=== PATIENT | female | born 1995 | race Caucasian/White ===

== ENCOUNTER 2017-05-02 18:06 | Observation (INO) ==
[2017-05-02 18:54] LABS: Amphetamine Screen,Urine Negative ng/mL (Cutoff=1000); Barbiturate Screen,Urine Negative ng/mL (Cutoff=200); Benzodiazepines Screen,Urine Negative ng/mL (Cutoff=200); Cannabinoid Screen,Urine Negative ng/mL (Cutoff = 50); Cocaine Screen,Urine Negative ng/mL (Cutoff= 300); Opiate Screen,Urine Negative ng/mL (Cutoff=300); Phencyclidine Screen,Urine Negative ng/mL (Cutoff=25)
--- NOTE | 2017-05-02 19:27 | Discharge Summary ---
Date of Encounter: 05/02/17 Time of Encounter: 19:27 - Discharge Diagnosis (1) 29 weeks gestation of Priority: Primary Status: Acute Comments: admitted for observation (2) Decreased movement Priority: Secondary Status: Acute Comments: anterior placenta patient reports feeling movement since arriving to L&D Qualifiers: Fetus number: single or unspecified fetus Trimester: third trimester Qualified Code(s): O36.8130 - Decreased movements, third trimester, not applicable or unspecified (3) NST (non-stress test) reactive on surveillance Priority: Secondary Status: Acute Comments: baseline 130 bpm with moderate variability +15x15 accels no decels noted. - Discharge Medications Home Medications: Lanolin [Lansinoh] 1 appl TP TID PRN #0 oint...g. 10/08/15 [Rx] Vit/FA 1 each PO DAILY tablet 10/08/15 [Rx] Allergies/Adverse Reactions: 3 Allergy/AdvReac Type Severity Reaction Status Date / Time No Known Allergies Allergy Verified 10/06/15 06:38 Data Procedures and tests throughout hospitalization: Laboratory Tests 05/02/17 18:40 Urine Opiates Screen Negative Ur Barbiturates Screen Negative Ur Phencyclidine Scrn Negative Ur Amphetamines Screen Negative U Benzodiazepines Scrn Negative Urine Cocaine Screen Negative U Marijuana (THC) Screen Negative Labs on day of discharge: Labs from last 24 hours 05/02/17 18:40 Urine Opiates Screen Negative Ur Barbiturates Screen Negative Ur Phencyclidine Scrn Negative Ur Amphetamines Screen Negative U Benzodiazepines Scrn Negative Urine Cocaine Screen Negative U Marijuana (THC) Screen Negative Date of admission: 05/02/17 18:06 Discharging clinician: Yocasta Wynn Anticipated date of discharge: 05/02/17 - Patient Status Disposition: Home, Self-Care Condition: Good Functional capacity at discharge: independent ambulation - Discharge Instructions Follow Up With: Cari Adair, [Partnered Physician] - - Diet and Activity Activity: increase activity as tolerated Diet: regular diet 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 Patient denies LOF, VB or contractions. Time Attestation: Total time spent providing and/or coordinating discharge services: Time Spent: Less than 30 minutes Exam - Constitutional General appearance IM: A&O X 3, pleasant, answers questions appropriately - Extremities Exam Extremities exam IM: Present: full ROM, normal capillary refill, normal inspection - Neurological Exam Neurological exam: alert, oriented X3, reflexes normal - Other Additional findings: FHR 130 bpm moderate variability +15x15 accels no decels noted. CAt. 1 tracing no contractions - VTE Reasons for not Prescribing Prophylaxis: Treatment not Indicated - Low risk for VTE
== END 2017-05-02 19:33 | disposition home or self-care (01) ==
LOC: 1NENULAB
PROVIDERS: ADMIT Obstetrics & Gynecology; ATTEND Obstetrics & Gynecology

== ENCOUNTER 2017-07-05 08:00 | Inpatient (IN) ==
[2017-07-05] MEDS ORDERED: Ondansetron 4 MG/2 ML VIAL IVP PRN (08:18)
[2017-07-05] MEDS ORDERED: Naloxone 0.4 MG/ML INJ IVP PRN (08:18)
[2017-07-05] MEDS ORDERED: Metoclopramide 10 MG/2 ML VIAL IVP PRN (08:18)
[2017-07-05] MEDS ORDERED: miSOPROStol 25 MCG TABLET PO PRN (08:18)
[2017-07-05] MEDS ORDERED: *HR* Nalbuphine 10 MG/ML AMPUL IVP PRN (08:18)
[2017-07-05] MEDS ORDERED: Famotidine 20 MG/2 ML VIAL IVP PRN (08:18)
[2017-07-05] MEDS ORDERED: Lidocaine 1% 20 ML MDV INFILT PRN (08:18)
[2017-07-05] MEDS ORDERED: Oxytocin 20 units/ LR 1000 mL 20 UNIT/1,000 ML BAG IVC SCH ×2 (08:30→22:52)
--- NOTE | 2017-07-05 09:26 | OB/GYN History & Physical ---
Date of Encounter: 07/05/17 Time of Encounter: 10:00 Assessment and Plan (1) 39 weeks gestation of Current visit: No Status: Acute Admit for IOL. Hodges and cytotec for induction. Epidural when requested. GBS negative. Anticipate . History of Present Illness Chief complaint: IOL HPI: Ms. Cast is a 22 year old female presenting for IOL at 39weeks. This has been uncomplicated. Blood type A positive Rubella immune Serologies negative GBS negative Past Med Surg Social Fam HX - Past Medical History Medical history: no medical history Psychiatric history: anxiety - Past Surgical History Surgical History: no surgical history - Social History Smoking Status: Former smoker Smokeless Tobacco Status: No Alcohol use: none Drug use: none - Family History Father Adopted: No Living Status: Still Living Hx Family Cardiac Disorders: No Hx Family Respiratory Disorders: No Hx Family Cancer: No Hx Family GI Disorders: No Hx Family Genitourinary Disorders: No Hx Family Endocrine Disorder: No Hx Family Musculoskeletal Disorders: No Hx Family Neuromuscular Disorders: No Hx Family Neurologic Disorders: No Hx Family HEENT Disorders: No Hx Family Autoimmune Disorders: No Hx Family Reproductive Disorders: No Hx Family Psychosocial Disorders: No Hx Family Medical Disorders: No Obstetrical History - Pregnancies : 2 Para: 1 Term: 1 Livin Medications and Allergies Lanolin [Lansinoh] 1 appl TP TID PRN #0 oint...g. 10/08/15 [Rx] Vit/FA 1 each PO DAILY tablet 10/08/15 [Rx] 3 Allergy/AdvReac Type Severity Reaction Status Date / Time No Known Allergies Allergy Verified 10/06/15 06:38 Review of System OB All systems PM: reviewed and no additional remarkable complaints except as stated Exam - Constitutional Constitutional: well developed, well nourished, no acute distress - Lungs Respiratory exam: CTAB - Cardiovascular Cardiovascular exam: RRR, +S1, +S2 - Abdomen Abdomen: Present: gravid, non tender - Extremities Extremities exam: normal inspection - Vulva Vulva: bilateral: normal - Vagina Vagina: Present: normal moisture - Cervix Dilation: 1 Effacement: 80 - Anus/Rectum Anus/Rectum: Present: normal perianal skin Results Result Diagrams: 07/05/17 09:10 All other labs normal. - VTE Reasons for not Prescribing Prophylaxis: Treatment not Indicated - Low risk for VTE
--- NOTE | 2017-07-05 09:28 | OB Labor Progress Note ---
Date of Encounter: 07/05/17 Time of Encounter: 09:26 Labor Progress Note - Subjective Subjective: Pt reports being hungry but no other complaints at this time. - Cervix Cervix: 80/-2 - Heart Tones Heart Tones: Category I - [place] Thom[place]: irregular UC - Interventions Interventions: Hodges balloon placed in cervix using sterile technique. Balloon inflated with 30ml sterile water. Pt tolerated well. - Plan Plan: Pt to ambulate for an hour and then will give cytotec.
[2017-07-05 09:43] LABS: Basophils % 0.4 %; Eosinophils % 0.5 %; Hemoglobin 13.8 g/dL (11.5-15.4); Immature Granulocytes % 0.6 % (0-4); Lymphocytes # 1.9 K/mcL (0.6-4.6); Lymphocytes % 23.8 %; Mean Corpuscular HGB Conc 35.4 g/dL (31.6-35.5); Mean Corpuscular Hemoglobin 31.1 pg (28.0-33.3); Mean Corpuscular Volume 87.8 fL (83.0-100.0); Mean Platelet Volume 12.9 fL (9.4-12.4); Monocytes # 0.7 K/mcL (0.0-1.3); Monocytes % 8.6 %; Neutrophils # 5.3 K/mcL (1.6-8.9); Platelet Count 131 K/mcL (140-400); Red Blood Count 4.44 M/mcL (3.82-4.97); Segmented Neutrophils % 66.1 %
[2017-07-05 10:39] LABS: Amphetamine Screen,Urine Negative ng/mL (Cutoff=1000); Barbiturate Screen,Urine Negative ng/mL (Cutoff=200); Benzodiazepines Screen,Urine Negative ng/mL (Cutoff=200); Cannabinoid Screen,Urine Negative ng/mL (Cutoff = 50); Cocaine Screen,Urine Negative ng/mL (Cutoff= 300); Opiate Screen,Urine Negative ng/mL (Cutoff=300); Phencyclidine Screen,Urine Negative ng/mL (Cutoff=25)
[2017-07-05] MEDS: Ringers Solution, Lactated 1,000 ML IVC SCH ×2 (14:31→15:38)
[2017-07-05] MEDS ORDERED: *HR* FentaNYL (PF) 100 MCG/2 ML VIAL EP ONE (15:18)
[2017-07-05] MEDS ORDERED: Bupivacaine-MPF 0.25% 10 ML VIAL EP ONE (15:18)
[2017-07-05] MEDS ORDERED: Epidural Premix (fent/bupiv) 110 ML EP ONE (15:26)
[2017-07-05] MEDS ORDERED: Epidural Premix (fent/bupiv) 110 ML EP SCH (15:30)
--- NOTE | 2017-07-05 15:57 | Anesthesia Evaluation PreOp ---
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 Had epidural with previous , no complications.Denies FHAP.) : Yes Alcohol Use: none Drug use: none Medications and Allergies Lanolin [Lansinoh] 1 appl TP TID PRN #0 oint...g. 10/08/15 [Rx] Vit/FA 1 each PO DAILY tablet 10/08/15 [Rx] 3 Allergy/AdvReac Type Severity Reaction Status Date / Time No Known Allergies Allergy Verified 10/06/15 06:38 - Meds/Allergy Pre-op Review Medications Reviewed: Yes Allergies Reviewed: Yes Beta Blockers on Current Med List: No Anesthesia Results - Labs 07/05/17 09:10 Anesthesia Exam 116/74,86, 16, 98%. Height: 5'10" Weight: 84kg NPO (# of Hours): >8 Pain Scale: 8 Pain Scale Used: Numeric (1 - 10) - HEENT Pupil (Motor): Pupils equal, EOMI Mallampati: II Teeth: Normal Oral Opening: Greater than 3 - HEATING AND COOLING SYSTEMS ENGINEER LOC: Oriented HEATING AND COOLING SYSTEMS ENGINEER Motor: Normal RUE, Normal LUE, Normal RLE, Normal LLE, Normal Face HEATING AND COOLING SYSTEMS ENGINEER Sensory: Normal: RUE, LUE, RLE, LLE, Face - Cardiac Rhythm: Regular - Pulmonary Breath Sounds: bilateral Clear Respiratory Effort: Symmetrical Anesthesia Assess/Plan ASA Score: 2 Modified Jackson Scale for Level of Consciousness: Cooperative, oriented, and tranquil Anesthetic Plan: Regional Monitoring Plan: Standard Monitors
--- NOTE | 2017-07-05 16:01 | Anesthesia Procedures ---
Date of Encounter: 07/05/17 Time of Encounter: 15:27 Procedures: Anesthesia - Epidural/Spinal Patient ID/Chart reviewed: Yes Patient examined: Yes OB Eval: Gestational age: 39 OB Eval: : 2 OB Eval: Hx Para: 1 OB Eval: Dilated at (cm): 4 OB Eval: Contractions: Non-stressed pattern Consent Obtained: Yes Supplemental Oxygen: None/Room Air Site Prep: Aseptic Technique, Sterile prep and drape, Povidone-Iodine 1% Patient position: upright Local Anesthetic: Lidocaine 1% Amount of Local Anesthetic used: 3 Touhy Needle Gauge: 18 Touhy Needle Depth (cm): 6 Catheter Depth at Skin (cm): 18 Test Dose (1.5% Lido + Epi): Volume given (mls): 3 Test Dose Result: Negative Loading Dose: 0.25% Marcaine (mls): 8 Loading Dose: Fentanyl (mcg): 100 Loading Dose Administered: Thru Catheter Infusion Med: 0.125% Bupivacaine w/ 2 mcg/ml Fentanyl Infusion Rate (mls/hr): [address]: Tegaderm, Tape Interspace Used: L3-L4 Loss of Resistance (MICHAEL): Yes Blood: No CSF: No Paresthesia: No Vitals + FHT's: 3 Vital Signs Time 1527 1541 1546 150 BP 116/74 141/62 139/66 116/5 Pulse 81 99 77 84 FHTs 130 130 130 130
--- NOTE | 2017-07-05 19:48 | OB/GYN Procedure Note ---
Delivery - Delivery Date: 07/05/17 Provider: Cari Adair) Intrapartum events: none Delivery induction: AROM, oxytocin, brothers, misoprostol Delivery monitor: external FHT, external uterine, internal uterine Anesthesia: epidural Quantitated Blood Loss: 300 - (s) A Infant Delivery Date: 07/05/17 Delivery Time: 19:20 Presentation: vertex Position: BÁRBARA Route of delivery: Gender: Female Viability: Viable Pounds: 9 Ounces: 1 Weight Gram: 4.105 kg at 1 minute: 7 at 5 mins: 9 Shoulder Dystocia: not encountered Specimens collected: cord blood Placenta: spontaneous Cord: 3 umbilical vessels - Repair Episiotomy: none Laceration Description: Periurethral - Complications Delivery complications: none Delivery comments: Called to room with patient complete and +2 station. Under maternal effort she delivered a viable female weighing 9 lbs. 1 oz. and Apgars 7 and 9 at one and 5 minutes respectively over an intact perineum. Following delivery the head the was bulb suctioned. The remainder of the delivered with maternal effort. was placed on mom's abdomen where a delayed cord clamping was performed. The cord was double clamped and cut. Placenta delivered spontaneously, complete, and intact with three-vessel cord. There is a left periurethral tear that was reapproximated and hemostatic following 3 interrupted sutures of 3-0 Monocryl. There were no vaginal, perineal, or cervical lacerations on exam. Mother and infant recovering in LDR in stable condition. - Disposition Mom disposition: stable in LDR disposition: stable in LDR
[2017-07-05] MEDS ORDERED: Acetaminophen 325 MG TABLET PO PRN (22:52)
[2017-07-05] MEDS ORDERED: Ibuprofen 600 MG TABLET PO PRN (22:52)
[2017-07-06] MEDS ORDERED: Prenatal Vit/FA 1 EACH TABLET PO SCH (09:00)
[2017-07-06 09:49] VITALS: BP 119/65
--- NOTE | 2017-07-06 10:06 | Discharge Summary ---
Date of Encounter: 07/06/17 Time of Encounter: 10:04 - Discharge Diagnosis (1) Vaginal delivery Priority: Primary Status: Acute Comments: Stable, meeting all PP milestones, bleeding minimal, , desires discharge. - Discharge Medications Prescriptions: Ibuprofen [Motrin] 600 mg PO Q6HR PRN #60 tablet PRN Reason: Cramping Docusate [Colace] 100 mg PO BID #60 capsule Home Medications: Lanolin [Lansinoh] 1 appl TP TID PRN #0 oint...g. 10/08/15 [Rx] Vit/FA 1 each PO DAILY tablet 10/08/15 [Rx] Acetaminophen [Tylenol] 650 mg PO Q6HR PRN tablet 07/06/17 [Rx] Docusate [Colace] 100 mg PO BID #60 capsule 07/06/17 [Rx] Ibuprofen [Motrin] 600 mg PO Q6HR PRN #60 tablet 07/06/17 [Rx] Vit/FA 1 each PO DAILY tablet 07/06/17 [Rx] Allergies/Adverse Reactions: 3 Allergy/AdvReac Type Severity Reaction Status Date / Time No Known Allergies Allergy Verified 10/06/15 06:38 Data Procedures and tests throughout hospitalization: Laboratory Tests 07/05/17 07/05/17 09:10 09:10 WBC 8.0 RBC 4.44 Hgb 13.8 Hct 39.0 MCV 87.8 MCH 31.1 MCHC 35.4 RDW 13.0 Plt Count 131 L MPV 12.9 H Immature Gran % 0.6 Seg Neutrophils % 66.1 Lymphocytes % 23.8 Monocytes % 8.6 Eosinophils % 0.5 Basophils % 0.4 Neutrophils # 5.3 Lymphocytes # 1.9 Monocytes # 0.7 Eosinophils # 0.0 Basophils # 0.0 Urine Opiates Screen Negative Ur Barbiturates Screen Negative Ur Phencyclidine Scrn Negative Ur Amphetamines Screen Negative U Benzodiazepines Scrn Negative Urine Cocaine Screen Negative U Marijuana (THC) Screen Negative Labs on day of discharge: Labs from last 24 hours 07/05/17 09:10 Urine Opiates Screen Negative Ur Barbiturates Screen Negative Ur Phencyclidine Scrn Negative Ur Amphetamines Screen Negative U Benzodiazepines Scrn Negative Urine Cocaine Screen Negative U Marijuana (THC) Screen Negative Date of admission: 07/05/17 08:12 Primary care physician: PCP NONE Consults: 07/05/17 22:52 Consult to Batch Still Operator [CONS] Routine Comment: Vaginal delivery, consult needed Discharging clinician: Claire Ramirez Anticipated date of discharge: 07/06/17 - Patient Status Disposition: Home, Self-Care Condition: Good Functional capacity at discharge: independent ambulation Overall status at discharge: patient is back to baseline - Discharge Instructions Follow Up With: NONE,PCP [Primary Care Provider] - Cari Adair, DO [Partnered Physician] - - Diet and Activity Activity: resume usual activities as tolerated Diet: regular diet Hospital Course Reason for admission: IUP at term Delivery: Episiotomy: none Laceration: other (periuretheral) Other procedures: none complications: none Discharge diagnosis: IUP at term delivered [place] baby: female Hospital course: Delivery - Delivery Date: 07/05/17 Provider: Cari Adair (sivan) Intrapartum events: none Delivery induction: AROM, oxytocin, brothers, misoprostol Delivery monitor: external FHT, external uterine, internal uterine Anesthesia: epidural Quantitated Blood Loss: 300 - (s) Infant A Delivery Date: 07/05/17 Delivery Time: 19:20 Presentation: vertex Position: BÁRBARA Route of delivery: Gender: Female Viability: Viable Pounds: 9 Ounces: 1 Weight Gram: 4.105 kg at 1 minute: 7 at 5 mins: 9 Shoulder Dystocia: not encountered Specimens collected: cord blood Placenta: spontaneous Cord: 3 umbilical vessels - Repair Episiotomy: none Laceration Description: Periurethral - Complications Delivery complications: none Delivery comments: Called to room with patient complete and +2 station. Under maternal effort she delivered a viable female weighing 9 lbs. 1 oz. and Apgars 7 and 9 at one and 5 minutes respectively over an intact perineum. Following delivery the head the was bulb suctioned. The remainder of the infant delivered with maternal effort. was placed on mom's abdomen where a delayed cord clamping was performed. The cord was double clamped and cut. Placenta delivered spontaneously, complete, and intact with three-vessel cord. There is a left periurethral tear that was reapproximated and hemostatic following 3 interrupted sutures of 3-0 Monocryl. There were no vaginal, perineal, or cervical lacerations on exam. Mother and recovering in LDR in stable condition. - Disposition Mom disposition: stable in PP and appropriate for discharge Time Attestation: Total time spent providing and/or coordinating discharge services: Time Spent: Less than 30 minutes Exam - Constitutional Vitals: Temp Pulse Resp BP Pulse Ox 98.1 F 84 16 119/65 99 07/06/17 09:48 07/06/17 09:48 07/06/17 09:48 07/06/17 09:48 07/06/17 09:48 General appearance IM: A&O X 3 - Respiratory Respiratory exam: Present: CTAB - Cardiovascular Cardiovascular exam IM: Present: RRR - GI/Abdominal GI/Abdominal exam IM: soft - Uterine Tone: Firm Uterus Position: At Umbilicus - Extremities Exam Extremities exam IM: Present: normal inspection - Neurological Exam Neurological exam: normal gait, oriented X3
[2017-07-06] MEDS ORDERED: Benzocaine/Menthol 56 GM AEROSOL SPRAY TP PRN (13:23)
== END 2017-07-06 16:00 | disposition home or self-care (01) | DRG 775 ==
LOC: 1NENULAB 08:12 → 1NENUOBS 21:50
PROVIDERS: ADMIT Obstetrics & Gynecology; ATTEND Obstetrics & Gynecology